=== PATIENT | female | born 1965 | race Caucasian/White ===

== ENCOUNTER 2020-05-12 20:12 | Emergency (ER) | payer MEDICAID ==
[~2020-05-12] VITALS: Ht 167.6 cm; Wt 109.1 kg
[~2020-05-12 20:12] MED LIST: ACTOS15 MG PO; AMITRIPTYLINE100 MG PO; COZAAR50 MG PO; CYCLOBENZAPRINE10 MG PO; ELIQUIS2.5 MG PO; GLUCOPHAGE500 MG PO; GLYBURIDE5 M1 PO; HYDROCHLOROTHIA25 MG PO; INVOKANA100 MG PO; K-DUR20 MEQ PO; LASIX20 MG PO; MS CONTIN15 MG PO; OXYCODONE HCL5 MG PO; PRAVACHOL20 MG PO; PRAVASTATIN SOD10 MG PO; REGLAN10 MG PO
[2020-05-12 20:29] VITALS: Ht 167.6 cm; Wt 109.1 kg
[2020-05-12 22:16] LABS: BASOPHILS 0.3 % (0-2); EOSINOPHILS 3.4 % (0-7); HEMATOCRIT 38.5 % (36.0-48.0); HEMOGLOBIN 13.2 g/dL (12-16); IMMATURE GRANULOCYTES 0.6 % (0-5); LYMPHOCYTES 32.8 % (15-50); MCH 30.1 pg (26.0-34.0); MCHC 34.3 g/dL (31.0-37.0); MCV 87.9 fL (80.0-100.0); MEAN PLATELET VOLUME 8.7 fL (7.4-10.4); MONOCYTES 5.2 % (2-11); NEUTROPHILS 57.7 % (40-80); RBC 4.38 10x6/uL (4.00-5.40); RDW 13.3 % (11.5-14.5); WBC 9.4 10x3/uL (4.8-10.8)
[2020-05-12 22:17] LABS: PLATELET COUNT 282 10x3/uL (130-400)
[2020-05-12 22:27] LABS: ANION GAP 14.8 mmol/L (8-16); CALCIUM 8.5 mg/dL (8.5-10.1); CARBON DIOXIDE 25.9 mmol/L (21.0-32.0); CREATININE - SERUM 0.9 mg/dL (0.6-1.3); POTASSIUM - SERUM 3.7 mmol/L (3.5-5.1)
[2020-05-12 22:32] LABS: ALBUMIN 3.5 g/dL (3.4-5.0); BILIRUBIN - TOTAL 0.25 mg/dL (0.2-1.3); C-REACTIVE PROTEIN 0.5 mg/dL (0.0-0.9); PROTEIN - SERUM 7.2 g/dL (6.4-8.2)
[2020-05-12] MEDS ORDERED: DOXYCYCLINE HY100 M2 PO (22:59)
[2020-05-12] MEDS ORDERED: CLEOCIN HCL300 MG PO (22:59)
[2020-05-12 23:40] VITALS: BP 140/80
== END 2020-05-13 00:36 | disposition home or self-care (01) ==
LOC: D.ER 20:12
PROVIDERS: Family Medicine
DX: L03.115 Cellulitis of right lower limb (principal); E11.65 Type 2 diabetes mellitus with hyperglycemia; Z79.84 Long term (current) use of oral hypoglycemic drugs; I10 Essential (primary) hypertension; M79.671 Pain in right foot